=== PATIENT | male | born 1960 | race Caucasian/White ===

== ENCOUNTER → 2021-10-27 13:17 | Outpatient (CLI) | payer OTHER, SELFPAY ==
--- NOTE | 2021-10-27 13:18 | DI.RAD.S_ITS ---
PROCEDURE: XR TIBIA FUBULA RT 2V INDICATIONS: R ellsworth pain, concerned for fracture TECHNIQUE: 2 views of the tibia and fibula were acquired. COMPARISON: None. FINDINGS: Bones: No acute fractures or dislocations. No suspicious bony lesions. Small suprapatellar enthesophyte. Soft tissues: No suspicious soft tissue calcifications or masses. IMPRESSION: No acute osseous abnormality. If clinical suspicion and/or symptoms persist, additional imaging with repeat plain films, or advanced imaging (e.g. CT, MRI) may be helpful for further assessment. Dictated by: Alex Grande M.D. on 10/27/2021 at 13:40 Approved by: Alex Grande M.D. on 10/27/2021 at 13:40
== END ==
PROVIDERS: Referring Provider Physician Assistant; Visit Provider Physician Assistant
DX: M79.661 Pain in right lower leg (principal)
CPT/HCPCS: 73590

== ENCOUNTER → 2023-10-11 08:27 | Outpatient (CLI) | payer OTHER, SELFPAY ==
[2023-10-11 09:24] LABS: Add Manual Diff / Slide Review NO; Basophils Absolute Auto 0 /uL (0-100); Basophils Percent Auto 0.4 % (0-2); Eosinophils Absolute Auto 100 /uL (0-450); Eosinophils Percent Auto 1.1 % (2-4); Hematocrit 45.5 % (41-53); Hemoglobin 15.1 g/dL (13.5-17.5); Lymphocytes Absolute Auto 2100 /uL (1100-4500); Lymphocytes Percent Auto 38.6 % (25-40); Mean Corpuscular HGB Conc 33.3 % (30-36); Mean Corpuscular Hemoglobin 31.7 PG (26-34); Mean Corpuscular Volume 95.2 fL (80-100); Monocytes Absolute Auto 600 /uL (0-900); Monocytes Percent Auto 10.7 % (3-14); Neutrophils Absolute Auto 2600 /uL (1500-7000); Neutrophils Percent Auto 49.2 % (50-75); Platelet Count 201 X10^3/uL (150-400); Red Blood Cell Count 4.78 X10^6/uL (4.5-5.9); Red Cell Distribution Width 12.9 % (11.6-14.8); White Blood Cell Count 5.3 X10^3/uL (4.5-11.0)
[2023-10-11 09:51] LABS: Alanine Aminotransferase 18 IU/L (<50); Albumin Globulin Ratio 1.4 (1.0-2.8); Alkaline Phosphatase 47 U/L (38-126); Aspartate Aminotransferase 25 IU/L (17-59); BUN Creatinine Ratio 21.3 (6-22); Bilirubin Total 1.2 mg/dL (0.2-1.3); Blood Urea Nitrogen 17 mg/dL (9-20); Calcium 9.6 mg/dL (8.4-10.2); Carbon Dioxide 31 mmol/L (22-32); Chloride 101 mmol/L (98-107); Cholesterol 208 mg/dL (140-199); Estimated Glomerular Filt Rate > 60 mL/min (>60); Globulin 2.9 g/dL (1.7-4.1); Glucose 83 mg/dL (80-110); HDL Cholesterol 65 mg/dL (40-60); HEMOLYSIS < 15 (0-50); LDL Cholesterol Calculated 131 mg/dL (<100); Potassium 4.4 mmol/L (3.4-5.1); Sodium 139 mmol/L (137-145); Total Protein 6.9 g/dL (6.3-8.2); Triglycerides 61 mg/dL (35-150)
== END ==
LOC: LAB 08:28
PROVIDERS: PCP Family Medicine; Referring Provider Family Medicine; Visit Provider Family Medicine
DX: K58.9 Irritable bowel syndrome, unspecified (principal); M06.9 Rheumatoid arthritis, unspecified; G47.30 Sleep apnea, unspecified; F32.A Depression, unspecified
CPT/HCPCS: 36415; 80053; 80061; 85025

== ENCOUNTER → 2024-02-20 15:18 | Outpatient (CLI) | payer OTHER, SELFPAY ==
[2024-02-20 17:15] LABS: TSH w/ Reflex to FT4 0.91 uIU/mL (0.47-4.68)
[2024-02-25 15:41] LABS: C difficie Toxins A and B, EIA Negative (Negative)
[2024-02-28 17:13] LABS: Deamidated Gliadin Ab IgA 6 units (0-19); Deamidated Gliadin Ab IgG 2 units (0-19); Immunoglobulin A,Qn 211 mg/dL (61-437); t-Transglutaminase IgA <2 U/mL (0-3)
== END ==
PROVIDERS: PCP Family Medicine; Referring Provider Family Medicine; Visit Provider Family Medicine
DX: R19.7 Diarrhea, unspecified (principal)
CPT/HCPCS: 36415; 82784; 83516; 84443; 87177; 87324; 87329

== ENCOUNTER 2024-07-09 07:49 | Day surgery (SDC) | payer OTHER, SELFPAY ==
--- NOTE | 2024-07-09 | PATH_ITS ---
[facility] Accession Number: [id number] No. of containers..02 Tissue . 01 Material submitted: . PART A: colon - TRANSVERSE POLYPS PART B: colon - DESCENDING POLYP . 01 Diagnosis: Part A: TRANSVERSE POLYPS: Tubular adenomas. Hyperplastic polyp. . Part B: DESCENDING POLYP: Tubular adenoma. STO 07/10/2024 1634 Local . 01 Electronically signed: . Td Vincent MD, Pathologist NPI- [id number] . 01 Gross description: . Part A: TRANSVERSE POLYPS: Received in formalin are multiple fragment(s) of staley, soft tissue measuring 0.1 x 0.1 x 0.1 cm to 1.5 x 0.4 x 0.4 cm submitted entirely in 1 cassette(s) . Part B: DESCENDING POLYP: Received in formalin is 1 fragment(s) of staley, soft tissue measuring 0.4 x -0.3 x 0.2 cm submitted entirely in 1 cassette(s) /AMADEO 07/10/2024 1634 Local . 01 Pathologist provided ICD-10: D12.3, D12.4 . 01 CPT . 073490, 213880 Specimen Comment: A courtesy copy of this report has been sent to [phone] Performed at: [address] [address], [place], [place] [id number] MD Td Vincent MD Phone: [phone]
[2024-07-09 08:12] VITALS: BP 113/78; PULSE 63; RESP 12; TEMP 36.2; O2SAT 99
--- NOTE | 2024-07-09 08:30 | PM.HP.1 ---
History of Present Illness History of Present Illness Date Patient Seen: 07/09/24 Time Patient Seen: 08:30 Chief complaint: Screening Colonoscopy Narrative: Louie is a 64-year-old man who presents for a colonoscopy. His last 1 was about 5 years ago and a polyp was removed. [facility] Medical History (Updated 07/09/24 @ 08:31 by Chavo Laurent MD) Dermatitis Arthritis of right knee Left rotator cuff tear arthropathy IBS (irritable bowel syndrome) Hand arthritis Eczema (~1999) Rheumatoid arthritis (~2004) Sleep apnea (~2004) Depression (~1999) Vertigo (~2009) Glaucoma (~2004) Colon polyps (~2009) Surgical History (Updated 10/07/23 @ 22:09 by Jennifer Grider) Anesthesia History of hand surgery (~2022) History of nasal surgery (~2011) History of ear surgery (~1975) Family History (Updated 10/07/23 @ 22:11 by Jennifer Grider) Grandfather Glaucoma Mother Glaucoma Social History Smoking Status: Former smoker alcohol intake: current substance use type: does not use Meds Home Medications and Allergies Home Medications Medication Instructions Recorded Confirmed Type latanoprost 0.005 % eye drops 1 drp EYE-BOTH DAILY #2.5 mL 01/27/24 02/17/24 Rx timolol 0.5 % eye drops 1 drp EYE-BOTH DAILY #5 mL 01/27/24 02/17/24 Rx ketoconazole 2 % shampoo 1 applic topical 2XW #120 mL 02/10/24 02/17/24 Rx peg 3350-sod sulf,vzuue-ful-pqh 1,000 ml PO DIRECTED #2,000 mL 04/27/24 Rx 178.7-7.3-0.5-1.12-0.9 gram oral soln (Suflave) Allergies Allergy/AdvReac Type Severity Reaction Status Date / Time No Known Drug Allergies Allergy Verified 07/09/24 07:55 Exam Vital Signs (past 8 hours): - 07/09/24 08:12 Temperature 97.2 F L Pulse Rate 63 Respiratory Rate 12 Blood Pressure 113/78 Pulse Oximetry 99 Oxygen Delivery Method Room Air Oxygen Delivery Method Room Air Const General: healthy appearing Assessment & Plan Assessment and plan (1) Colon cancer screening: Status: Acute Plan We reviewed the risks and benefits of colonoscopy and he would like to proceed. Time-Based Coding :: [TOTAL MINUTES] spent with patient and on the chart (including review of chart, obtaining history, exam, reviewing outside data, placing orders, documenting exam and treatment plan, and counseling patient) on [DATE].
[2024-07-09 09:12] VITALS: BP 102/69; PULSE 69; RESP 12; TEMP 36.2; O2SAT 96
--- NOTE | 2024-07-09 09:14 | PM.OP.COLON ---
Operative Date/Time/Diagnoses Date of procedure: 07/09/24 Time of procedure: 09:14 Pre-op diagnosis: Colon cancer screening Post-op diagnosis: same Procedure & Clinicians Study performed: Colonoscopy Same procedure as scheduled: Yes Surgeon: Chavo Laurent Procedure Notes Procedure in detail: Surgeon: Chavo Laurent MD Anesthesia: Kenyetta Castellanos CRNA Procedure: The patient was brought to the endoscopy suite, placed in left lateral decubitus position. The patient was connected to monitoring devices. A time-out was performed. Sedation was administered. Once the patient was adequately sedated, a digital rectal exam was performed and was normal. The scope was then inserted and advanced to the cecum where the appendiceal orifice was identified and photographed. The scope was then slowly withdrawn over greater than 6 minutes. The mucosa was thoroughly inspected. There was pandiverticulosis. There were 4 small polyps between 2 and 5 mm in the proximal transverse colon removed with a combination of cold snare and cold forceps. There was a 3 mm polyp in the descending colon removed with cold forceps. The scope was retroflexed in the rectum. No other abnormalities were found. The scope was straightened and removed. The patient was awakened and brought to recovery. Scope withdrawal time: 17 minutes Sedation time: 127 minutes EBL: 5 mL Findings: 4 small polyps in the proximal transverse colon and 1 small polyp in the descending colon. Post-procedure Disposition: PACU
[2024-07-09 09:17] VITALS: BP 91/66; PULSE 70; RESP 13; O2SAT 95
[2024-07-09 09:22] VITALS: BP 96/66; PULSE 63; RESP 12; TEMP 36.2; O2SAT 100
[2024-07-09 09:27] VITALS: BP 93/65; PULSE 65; RESP 13; O2SAT 98
[2024-07-09 09:33] VITALS: BP 96/71; PULSE 65; RESP 14; O2SAT 98
== END 2024-07-09 09:48 | disposition home or self-care (01) ==
PROVIDERS: PCP Family Medicine; Referring Provider Surgery; Visit Provider Surgery
PROC: 0DJD8ZZ Inspection of Lower Intestinal Tract, Via Natural or Artificial Opening Endoscopic (ICD-10-PCS; CPT 45378; principal; 2024-07-09 08:45)
DX: Z12.11 Encounter for screening for malignant neoplasm of colon (principal); D12.3 Benign neoplasm of transverse colon; D12.4 Benign neoplasm of descending colon
CPT/HCPCS: 45385; 45380; J2704

== ENCOUNTER → 2024-08-27 11:25 | Outpatient (CLI) | payer OTHER, SELFPAY | PROVIDERS: PCP Family Medicine; Visit Provider Family Medicine | DX: R39.15 Urgency of urination (principal) | CPT/HCPCS: 87086 ==

== ENCOUNTER → 2024-08-28 07:43 | Outpatient (CLI) | payer OTHER, SELFPAY ==
[2024-08-28 08:07] LABS: Add Manual Diff / Slide Review NO; Basophils Absolute Auto 0 /uL (0-100); Basophils Percent Auto 0.5 % (0-2); Eosinophils Absolute Auto 100 /uL (0-450); Eosinophils Percent Auto 1.4 % (2-4); Hematocrit 45.9 % (41-53); Hemoglobin 15.2 g/dL (13.5-17.5); Lymphocytes Absolute Auto 2000 /uL (1100-4500); Lymphocytes Percent Auto 44.6 % (25-40); Mean Corpuscular HGB Conc 33.2 % (30-36); Mean Corpuscular Hemoglobin 32.1 PG (26-34); Mean Corpuscular Volume 96.8 fL (80-100); Monocytes Absolute Auto 500 /uL (0-900); Neutrophils Absolute Auto 1900 /uL (1500-7000); Neutrophils Percent Auto 42.5 % (50-75); Platelet Count 199 X10^3/uL (150-400); Red Blood Cell Count 4.74 X10^6/uL (4.5-5.9); Red Cell Distribution Width 13.1 % (11.6-14.8); White Blood Cell Count 4.5 X10^3/uL (4.5-11.0)
[2024-08-28 08:13] LABS: Hemoglobin A1C% w Est Avg Glu 5.2 % (4.0-6.0)
[2024-08-28 08:29] LABS: Alanine Aminotransferase 16 IU/L (<50); Albumin Globulin Ratio 1.5 (1.0-2.8); Alkaline Phosphatase 47 U/L (38-126); Aspartate Aminotransferase 25 IU/L (17-59); BUN Creatinine Ratio 25.3 (6-22); Bilirubin Total 0.8 mg/dL (0.2-1.3); Blood Urea Nitrogen 20 mg/dL (9-20); Calcium 9.4 mg/dL (8.4-10.2); Carbon Dioxide 34 mmol/L (22-32); Chloride 103 mmol/L (98-107); Cholesterol 198 mg/dL (140-199); Estimated Glomerular Filt Rate > 60 mL/min (>60); Globulin 2.6 g/dL (1.7-4.1); Glucose 88 mg/dL (80-110); HDL Cholesterol 61 mg/dL (40-60); HEMOLYSIS < 15 (0-50); LDL Cholesterol Calculated 117 mg/dL (<100); Potassium 4.6 mmol/L (3.4-5.1); Sodium 141 mmol/L (137-145); Total Protein 6.6 g/dL (6.3-8.2); Triglycerides 100 mg/dL (35-150)
[2024-08-28 08:59] LABS: TSH w/ Reflex to FT4 2.69 uIU/mL (0.47-4.68)
== END ==
LOC: LAB 07:43
PROVIDERS: PCP Family Medicine; Referring Provider Family Medicine; Visit Provider Family Medicine
DX: Z13.6 Encounter for screening for cardiovascular disorders (principal); K58.9 Irritable bowel syndrome, unspecified; N52.9 Male erectile dysfunction, unspecified; R19.7 Diarrhea, unspecified; R39.15 Urgency of urination
CPT/HCPCS: 36415; 80053; 80061; 83036; 84153; 84154; 84443; 85025

== ENCOUNTER → 2025-06-14 06:49 | Outpatient (CLI) | payer MEDICARE, SELFPAY ==
--- NOTE | 2025-06-14 06:50 | DI.US.S_ITS ---
PROCEDURE: US ABD AORTA ANEURYSM SCREEN INDICATIONS: smoking hx, screening TECHNIQUE: Real time scanning was performed of the aorta and iliac arteries, with image documentation. COMPARISON: None. FINDINGS: Aorta: Proximal aortic diameter measures 2.5 x 2.5 cm. Mid-aorta measures 1.9 x 2.0 cm. Distal aortic diameter is 1.8 x 1.9 cm. Iliac arteries: Right common iliac artery measures 1.0 x 1.1 cm. Left common iliac artery measures 1.1 x 1.1 cm. IMPRESSION: No abdominal aortic aneurysm. Normal caliber iliac arteries. Dictated by: Divine Terry M.D. on 06/14/2025 at 9:10 Approved by: Divine Terry M.D. on 06/14/2025 at 9:11
== END ==
PROVIDERS: PCP Family Medicine; Referring Provider Family Medicine; Visit Provider Family Medicine
DX: Z13.6 Encounter for screening for cardiovascular disorders (principal); Z87.891 Personal history of nicotine dependence
CPT/HCPCS: 76706

== ENCOUNTER → 2025-08-30 12:45 | Outpatient (CLI) | payer MEDICARE, SELFPAY ==
[2025-08-30 13:14] LABS: Add Manual Diff / Slide Review NO; Hematocrit 45.7 % (41-53); Hemoglobin 15.2 g/dL (13.5-17.5); Lymphocytes Absolute Auto 1800 /uL (1100-4500); Mean Corpuscular HGB Conc 33.3 % (30-36); Mean Corpuscular Hemoglobin 31.8 PG (26-34); Mean Corpuscular Volume 95.4 fL (80-100); Platelet Count 210 X10^3/uL (150-400)
[2025-08-30 13:49] LABS: Alanine Aminotransferase 16 IU/L (<50); Albumin 4.3 g/dL (3.5-5.0); Albumin Globulin Ratio 1.5 (1.0-2.8); Alkaline Phosphatase 60 U/L (38-126); Blood Urea Nitrogen 20 mg/dL (9-20); Calcium 9.3 mg/dL (8.4-10.2); Carbon Dioxide 32 mmol/L (22-32); Chloride 103 mmol/L (98-107); Cholesterol 199 mg/dL (140-199); Estimated Glomerular Filt Rate > 60 mL/min (>60); Globulin 2.8 g/dL (1.7-4.1); Glucose 96 mg/dL (70-99); HDL Cholesterol 60 mg/dL (40-60); HEMOLYSIS < 15 (0-50); Potassium 4.2 mmol/L (3.4-5.1); Sodium 142 mmol/L (137-145); Total Protein 7.1 g/dL (6.3-8.2); Triglycerides 121 mg/dL (35-150)
[2025-08-30 14:17] LABS: Prostate Specific Antigen 2.17 ng/mL (0.10-4.00)
[2025-08-31 16:17] LABS: HIV 1 & 2 Ab/Ag 4th Gen Combo NEGATIVE (NEGATIVE); Hep C Virus Ab w/Reflex Quant NEGATIVE s/c (NEGATIVE)
== END ==
PROVIDERS: PCP Family Medicine; Referring Provider Family Medicine; Visit Provider Family Medicine
DX: Z12.5 Encounter for screening for malignant neoplasm of prostate (principal); N52.9 Male erectile dysfunction, unspecified; R39.15 Urgency of urination; M06.9 Rheumatoid arthritis, unspecified; Z87.891 Personal history of nicotine dependence
CPT/HCPCS: 36415; 80053; 80061; 84153; 85025; 86803; 87389